=== PATIENT | female | born 1970 | race Caucasian/White ===

== ENCOUNTER 2021-03-29 00:31 | Emergency (ER) | payer SELFPAY ==
[2021-03-29] MEDS ORDERED: Fluorescein Opthalmic Strip ONE (00:47)
[2021-03-29] MEDS ORDERED: Tetracaine 0.5% PF 4 ML BOT ONE ×2 (00:47→01:44)
[2021-03-29] MEDS ORDERED: Erythromycin Base 0.5% Oint 1 GM TUBE ONE (02:12)
== END 2021-03-29 02:13 | disposition home or self-care (01) ==
LOC: CSHERS 00:31
DX: T15.02XA Foreign body in cornea, left eye, initial encounter (principal)
CPT/HCPCS: 65222

== ENCOUNTER 2024-11-10 10:04 | Emergency (ER) | payer OTHER ==
[2024-11-10] MEDS ORDERED: Boostrix 0.5 ML (Tdap) VIAL (>/=7 yrs of age) ONE (11:10)
[2024-11-10] MEDS ORDERED: Lidocaine 1% (PF) 30 ML VIAL ONE (11:12)
== END 2024-11-10 14:37 | disposition home or self-care (01) ==
LOC: CSHERS 10:04
DX: S52.022A Displaced fracture of olecranon process without intraarticular extension of left ulna, initial encounter for closed fracture (principal); S80.02XA Contusion of left knee, initial encounter; I10 Essential (primary) hypertension; W01.198A Fall on same level from slipping, tripping and stumbling with subsequent striking against other object, initial encounter
CPT/HCPCS: 90471; 90715; J0665